=== PATIENT | female | born 2000 | race Caucasian/White ===

== ENCOUNTER 2019-12-24 13:05 | Outpatient (CLI) | payer OTHER, SELFPAY ==
[2019-12-24 13:27] LABS: Basophils Percent Auto 0.4 % (0.2-1.2); Eosinophils Absolute Auto 0.1 K/mm3 (0-0.3); Eosinophils Percent Auto 0.7 % (0-4.4); Hematocrit 47.6 % (37.0-47.0); Hemoglobin 15.7 g/dL (12.0-15.0); Immature Granulocyte Absolute 0.01 K/mm3 (0.00-0.031); Immature Granulocyte Percent A 0.1 % (0-0.5); Lymphocytes Absolute Auto 3.09 K/mm3 (0.9-3.2); Mean Corpuscular Hemoglobin 30.1 pg (26-34); Mean Corpuscular Volume 91.2 fl (80-100); Mean Platelet Volume 12.7 fl (7.4-10.4); Monocytes Absolute Auto 0.7 K/mm3 (0.1-0.6); Monocytes Percent Auto 8.6 % (2.6-8.5); Neutrophils Absolute Auto 4.5 K/mm3 (1.3-6.7); Neutrophils Percent Auto 53.2 % (45.5-73.1); Platelet Count Result 121 k/mm3 (150-375); Red Blood Count 5.22 M/mm3 (4.2-5.4); White Blood Count 8.4 K/mm3 (4.5-10.0)
[2019-12-24 16:49] LABS: Iron 120 ug/dL (37-170)
[2019-12-24 16:57] LABS: Alanine Aminotransferase 53 U/L (4-35); Albumin Level 4.7 g/dL (3.5-5.1); Alkaline Phosphatase 103 U/L (38-126); Aspartate Amino Transferase 36 U/L (14-36); Bilirubin,Total 0.6 mg/dL (0.2-1.3); Blood Urea Nitrogen 12 mg/dL (7-17); Calcium 9.4 mg/dL (8.4-10.2); Carbon Dioxide 22 mmol/L (22-30); Chloride 100 mmol/L (98-107); Estimated Glomerular Filt Rate > 60; Glucose 73 mg/dL (65-105); Lactate Dehydrogenase 442 U/L (313-618); Potassium 3.8 mmol/L (3.4-5.0); Sodium 138 mmol/L (137-145)
[2019-12-24 17:01] LABS: Percent Iron Saturation 41 % (20-50)
[2019-12-27 23:54] LABS: Platelet Antibody, Direct IgG NEGATIVE (NEGATIVE)
== END 2019-12-24 13:06 | disposition home or self-care (01) ==
LOC: ANHLAB 13:08
PROVIDERS: PCP Pediatrics; Visit Provider Internal Medicine Hematology & Oncology
DX: D69.59 Other secondary thrombocytopenia (principal)
CPT/HCPCS: 36415; 80053; 82607; 82728; 82746; 83540; 83550; 83615; 85025; 86023; 86038

== ENCOUNTER 2019-12-26 07:43 | Outpatient (CLI) | payer OTHER, SELFPAY ==
--- NOTE | ~2019-12-26 | US_ITS ---
US abdomen complete EXAMINATION: US Abdomen Complete INDICATION: PROCEDURE: Realtime High Resolution abdomen ultrasound. COMPARISON: No prior studies for comparison FINDINGS: Gallbladder within normal limits. No gallstones, pericholecystic fluid, gallbladder wall t hickening or biliary dilatation. Common bile duct measures 4 mm. Liver echotexture within normal limits without focal mass. Pancreas within normal limits. Pancreati c tail is obscured by bowel gas. Spleen is unremarkeable. Renal echotexture is within normal limits bilaterally without hydronephrosis, contour deforming mass or renal stone. Right kidney measures 11.3 cm. Left kidney measures 11.8 cm. Visualized aspects of the aorta and IVC are within normal limits. Portal vein is patent. No sonograph ic Krishnan's sign indicated by the technologist. IMPRESSION: 1: Normal abdominal ultrasound. Reviewed, dictated and finalized at location B. TIC COORDINATOR
== END 2019-12-26 07:44 | disposition home or self-care (01) ==
PROVIDERS: PCP Pediatrics; Visit Provider Internal Medicine Hematology & Oncology
DX: D69.59 Other secondary thrombocytopenia (principal)
CPT/HCPCS: 76700

== ENCOUNTER 2021-04-02 14:37 | Emergency (ER) | payer OTHER, SELFPAY ==
[2021-04-02 14:50] VITALS: BP 133/87; PULSE 96; RESP 16; TEMP 36.6; O2SAT 99
--- NOTE | 2021-04-02 14:55 | ED.URI ---
HPI - URI/Sore Throat General Chief Complaint: Upper Respiratory Infection Stated Complaint: cough/congestion Time Seen by Provider: 04/02/21 14:55 Source: patient Mode of arrival: ambulatory Limitations: no limitations History of Present Illness HPI Narrative: Thalia Clifford is a 20 yo female with no PMH other than tonsillar stones [facility] complaints of chronic cough that always gags her especially in the morning and feeling like she cannot breathe fully. She states that she had Covid in September and since she recovered from Covid without many symptoms has been having this problem with a cough and breathing since then. Related Data Allergies Allergy/AdvReac Type Severity Reaction Status Date / Time No Known Allergies Allergy Verified 04/02/21 15:07 Review of Systems Review of Systems: Narrative: CONSTITUTIONAL: Denies fever, chills, sweats. EYES: Denies visual changes, redness, discharge. ENT: Denies rhinorrhea, has congestion, has sore throat, otalgia. CARDIOVASCULAR: Denies chest pain, palpitations, edema. RESPIRATORY: Denies dyspnea, wheezing, chronic dry cough GASTROINTESTINAL: Denies abdominal pain, nausea, vomiting, diarrhea. GENITOURINARY: Denies dysuria, hematuria, abnormal discharge SKIN: Denies rash or itching. NEUROLOGIC: Denies numbness, or focal weakness. PSYCHIATRIC: Denies anxiety or depression. PMFSH Past Medical History Medical History Tonsillar calculus Family History Family History Other Hypertension Social History Social History (Updated 04/02/21 @ 15:14 by Jesi Weller CNP) Smoking status: Never smoker Alcohol intake: current Gender identity (if verbalized by the patient): Female Comments At time of signature, I agree with nursing past medical, surgical, social and family history. There is no relevant family history pertinent to the presenting complaint. Exam Narrative: Exam Narrative: GENERAL: This is a well-nourished, well-developed patient, in mild distress. HEAD: normocephalic, atraumatic. EYES: PERRL. Sclera clear/white. Vision is grossly intact. EARS: External ears normal, auditory canals clear and without drainage, TMs normal without perforation. Hearing grossly intact. NOSE: External nose normal without nasal discharge, nares without redness, no rhinorrhea. THROAT: Mucous membranes moist, posterior pharynx erythema, remove stones periodically NECK: Neck supple, non-tender CARDIOVASCULAR: Regular rate and rhythm without murmurs, gallops, or rubs. RESPIRATORY: Clear to auscultation. Breath sounds equal bilaterally. No wheezes, rales, or rhonchi. GASTROINTESTINAL: Abdomen soft, non-tender, SKIN: warm, intact with no suspicious lesions or rash, good texture and turgor. NEURO: awake, alert, and oriented to person, place and time. There were no obvious focal neurologic abnormalities. Steady gait EXTREMITIES: Normal range of motion. BACK: Nontender without deformity Course Course Emergency Course: Patient has chronic cough and since Covid in September, erratic tonsillar stones, and feel like she cannot breathe Strep test negative Added Zyrtec to the Angy patient already takes, started on rescue inhaler to try it , add Flonase, started on Pepcid 10 mg twice daily. Suspect that her cough is actually because from GERD particularly since is worse in the morning on awakening, and because her sinuses and her ears look clear on exam Recommend follow-up with ENT regarding tonsillar stones Vital Signs Vital signs: Vital Signs Temperature 97.9 F 04/02/21 14:50 Pulse Rate 96 04/02/21 14:50 Respiratory Rate 16 04/02/21 14:50 Blood Pressure 133/87 04/02/21 14:50 Pulse Oximetry 99 04/02/21 14:50 Temperature 97.9 F 04/02/21 14:50 Pulse Rate 96 04/02/21 14:50 Respiratory Rate 16 04/02/21 14:50 Blood Pressure 133/
== END 2021-04-02 15:30 | disposition home or self-care (01) ==
PROVIDERS: Emergency Provider Nurse Practitioner
DX: R05 Cough (principal); F41.9 Anxiety disorder, unspecified; J35.8 Other chronic diseases of tonsils and adenoids; K21.9 Gastro-esophageal reflux disease without esophagitis; Z86.16 Personal history of COVID-19
CPT/HCPCS: 87081; 87880; 99213; G0463

== ENCOUNTER 2024-12-27 06:02 | Inpatient (IN) | payer OTHER, SELFPAY ==
[2024-12-27] VITALS (38 sets, daily range): BP systolic 70–186; BP diastolic 45–150; PULSE 78–124; RESP 20; TEMP 36.3–37.5; O2SAT 96; BMI 40.1
--- NOTE | 2024-12-27 06:02 | LDADM ---
This patient, Thalia Clifford, was admitted to Labor/Delivery/Recovery [facility] on 12/27/24 at 06:02. Plans for labor, pain management and were discussed with patient. Patient/family oriented to hospital policies and general routines including ID bracelet, bed and alarms, visiting hours, pain management, procedures, bathroom and other care routines, personal items, smoking policy, room service/diet and guest tray routines, infant security routines, and visiting hours. Patient/Family are encouraged to report perceived risks to care and to ask questions if they do not understand what they are told or what they should do. See OBIX for further documentation.
--- OUTSIDE RECORDS SUMMARY | 2024-12-27 06:08 | XMS_ITS | Clinical Summary ---
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 Family History Relation Name Status Comments Brother 1 Alive Brother 2 Alive Father Alive Mother Alive Social History Tobacco Use Types Packs/Day Years Used Date Smoking Tobacco: Never Smokeless Tobacco: Never Alcohol Use Standard Drinks/Week Comments Yes 0 (1 standard drink = 0.6 oz pur e alcohol) Comments No Sex and Gender Information Value Date Recorded Sex Assigned at Not on file Legal Sex Female 12:14 PM UNDERGRADUATE ADVISOR Gender Identity Not on file Sexual Orientation Not on file Last Filed Vital Signs Vital Sign Reading Time Taken Comments Blood Pressure 116/76 12/17/2019 1:42 PM UNDERGRADUATE ADVISOR Pulse 89 12/17/2019 1:42 PM UNDERGRADUATE ADVISOR Temperature 37.1 C (98.7 F) 12/17/2019 1:42 PM UNDERGRADUATE ADVISOR Respiratory Rate - - Oxygen Saturation 97% 12/17/2019 1:42 PM UNDERGRADUATE ADVISOR Inhaled Oxygen Concentration - - Weight 88.3 kg (194 lb 9.6 oz) 12/17/2019 1:42 P M UNDERGRADUATE ADVISOR Height 167.6 cm (5' 6 ) 12/17/2019 1:42 PM UNDERGRADUATE ADVISOR Body Mass Index 31.41 12/17/2019 1:42 PM UNDERGRADUATE ADVISOR Plan of Treatment Health Maintenance Due Date Last Done Comments HPV VACCINES (1 - 3-dose series) 2014 DTAP/TDAP/TD VACCINES (1 - Tdap) 2018 HEPATITIS B VACCINES (1 of 3 - 19+ 3-dose series) 2018 CERVICAL CANCER SCREENING 2020 INFLUENZA VACCINE (#1) 2024 PNEUMOCOCCAL VACCINE 0-49 YEARS Aged Out No longer eligible based on patient's age to complete this topic Care Teams Vein Access Technician Relationship Specialty Start Date End Date Edel Alva NP [address] [place] [id number] PCP - General NURSE PRACTITIONER 09/03/19
--- OUTSIDE RECORDS SUMMARY | 2024-12-27 06:08 | XMS_ITS | Continuity of Care Document ---
Author Organization [facility] Address [address] [place] [address] Phone Care Team Providers Care Wood Buffer Name Role Phone Shai Arias MD Unavailable Unavailable Allergies, Adverse Reactions, Alerts Substance Reaction Status Criticality No Known Allergies Active No Inform ation Medications Medication Instructions Dosage Effective Dates (start - stop) Status Comments cetirizine 10 mg tablet take 1 tablet by oral route every evening 10 MG - Active fexofenadine 180 mg tablet take 1 tablet by oral route every morning 180 MG - Active diphenhydramine 25 mg tablet take 1 - 2 Tablet by oral route every 4 - 6 hours as needed 25 MG - Active Advance Directives Directive Yes / No Effective Date File Name No Information Encounters Encounter Description Practice Location Reason(s) For Visit Diagnoses Date Provider Providers Copied on Encounter [facility], [address], [place], [place], [id number], [place] tel:[phone] [facility] No Information Hugo Gibbons. [address], [id number], . tel:[phone] [facility], [address], [place], [place], [id number], tel:[phone] [facility] Other urticariaScab iesNon-allerg ic rhinitis Hugo Gibbons. [address], [id number], . tel:[phone] Referring Provider: Shai Arias, [address], [address] . tel:[phone] Family History Family Member Type Diagnosis Age At Onset Paternal grandmother Problem (finding) Allergies Father Problem (finding) Allergies Payers Payer name Insurance type Covered green party ID Authordc sheth(s) ATTILAStanley [facility] [id number] Social History Type Description Quantity Date Captured Comments Alcohol Use Details Unknown Caffeine Use Details Unknown Tobacco Use Status No Information Smoking Status No Information Sex Female Chief Complaint And Reason For Visit No Information Reason For Referral Reason For Referral No Information History Of Present Illness Encounter Date Complaint History Of Prese nt Illness No Information Functional Status Date Functional Assessmen t No Information Medications Administered Medication Instructions Dosage Effective Dates (start - stop) Status Comments No Drug Therapy Prescribed Instructions Date Instruction Additional Infor mation No Information Assessments Type Assessment Date No Information Patient Care Teams Name Effective Dates (start - stop) Status Members No Information
--- OUTSIDE RECORDS SUMMARY | 2024-12-27 06:08 | XMS_ITS | Clinical Summary ---
Author Organization [facility] Address [facility] [place] [address] Care Team Providers Care Leather Goods I Assembler Name Role Phone Edel Alva Primary Care Provider [phone] Allergies No known active allergies Medications medroxyPROGESTER one 150 MG/ML injection Inject 150 mg into the muscle every 3 (three) months. Active Active Problems Problem Noted Date Diagnosed Date Arthralgia of shoulder 04/25/2012 Family History Medical History Relation Comments Hypertension Paternal Grandmother Relation Status Comments Paternal Grandmother Social History Tobacco Use Types Packs/Day Years Used Date Smoking Tobacco: Never Smokeless Tobacco: Never Alcohol Use Standard Drinks/Week Comments Yes 2 (1 standard drink = 0.6 oz pur e alcohol) AUDIT-C Answer Date Recorded Frequency of Alcohol Consumption 2-4 times a tue07/30/2019 Average Number of Drinks Not on file 019 Frequency of Binge Drinking Not on file 04/2019 PHQ-2 Answer Date Recorded PHQ-2 Score 1 10/02/2019 Comments Unknown Sex and Gender Information Value Date Recorded Sex Assigned at Not on file Legal Sex Female 12:20 PM CDT Gender Identity Not on file Sexual Orientation Not on file Last Filed Vital Signs Vital Sign Reading Time Taken Comments Blood Pressure 109/73 07/30/2019 11:17 AM CDT Pulse 75 07/30/2019 11:17 AM CDT Temperature 37.3 C (99.2 F) 07/30/2019 11:17 AM CDT Respiratory Rate 16 07/30/2019 11:17 AM CDT Oxygen Saturation 99% 07/30/2019 11:17 AM CDT Inhaled Oxygen Concentration - - Weight 83.5 kg (184 lb) 07/30/2019 11:17 AM CDT Height 167.6 cm (5' 6 ) 07/30/2019 11:17 AM CDT Body Mass Index 29.7 07/30/2019 11:17 AM CDT Plan of Treatment Health Maintenance Due Date Last Done Comments Cervical Cancer Screening Pa p Smear (Age 21 to 29) Every 3 Years 1999 Cervical Cancer Screening 1999 Annual Physical 2002 HPV Vaccines (1 - 3-dose series) 2014 Hepatitis C 2017 DTaP, Tdap and Td Vaccines ( 1 - Tdap) 2018 Hepatitis B Vaccines (1 of 3 - 19+ 3-dose series) 2018 COVID-19 Vaccine (2023-2 5 season) 2024 Influenza Adult (#1) 2024 Meningococcal B Vaccine Aged Out No l onger eligible based on patient's age to complete this topic Meningococcal Vaccine Aged Out No katy sanjuanita eligible based on patient's age to complete this topic Pneumococcal Vaccine: Pediat rics (0 to 5 Years) and At-Risk Patients (6 to 64 Years) Aged Out No longer eligible b ased on patient's age to complete this topic RSV Immunizations Under 20 Months Aged Out No longer eligible based on patient's age to complete this topic Insurance [employer] Care Teams Leather Goods I Assembler Relationship Specialty Start Date End Date Edel Alva APNP [address] [place] [id number] PCP - General NURSE PRACTITIONER 07/30/19
--- OUTSIDE RECORDS SUMMARY | 2024-12-27 06:08 | XMS_ITS | Data Portability ---
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 She states cortisone has worked well for her previously. Today discussed treatment options in detail today with Dr. Hernandez over the phone and then with the patient. He has recommended cortisone injections both knees oral anti-inflammatori es and a course of physical therapy. The patient states she would like to do it on her own at home she was given home exercise sheets for anterior knee pain we talked about patellar guide braces and doing VMO quad strengthening. Things may change once she is but this may take some time to get back down to her regular weight. The patient wanted to proceed therefore under sterile conditions I injected the patient's bilateral knee joints in the office today with 4 cc 0.5% bupivacaine and 20 mg of Kenalog each. The patient tolerated the procedures well. She is going to check with her welder fitter to see if it is okay to take Celebrex 200 mg daily she will not fiber picker the medication unless she has clearance to do this from her OB doctor. Normally we would see her back at about 6-8 weeks this will be very close to her delivery date so she has agreed to come back as needed after she has the baby. We will see how she does with time I stressed the importance of the home exercise program she is going to try to keep up with this. She voiced understanding and agreed with the above plan she will call for any further problems difficulties or questions. [email or web address] Not available 11/08/2024 10:51:48 Plan of Treatment Reminders Order Date Submit Date Provider Last Modified By Organization Details Last Modified Time Details Appointments None recorded. Lab None recorded. Referral None recorded. Procedures injection/a spiration joint/bursa (PROC) 2024 025 [email or web address] In-Office Order, Internal Use Only DO Not Attach Compendium DO Not Attach Compendium, Do Not Delete/merge, [id number] 10:20:13 Surgeries None recorded. Imaging XR, knee 2024 025 [email or web address] [facility], [address], [place], [address], 12:09:49 Medication Orders celecoxib 200 mg capsule 2024 025 [employer] #[id number], [address], [id number], 12:09:49 bupivacaine HCl 0.5 % (5 mg/mL) injection solution [address] [facility] #[id number], [address] [facility] [address] [place] [address], [id number], 12:09:49 Kenalog 10 mg/mL suspension for injection [address] [facility] #[id number], [address], [phone], 12:09:49 Patient TargetsNo targets recorded. Patient InstructionsNo instructions recorded. Reason for Referral None Reported. Results Created Date Observation Date Name Description Value Unit Range Abnormal Flag Note LastModifiedBy Organization Detail LastModifiedTime 11/08/19 25 XR, knee No observ ation record ed. [email or web address] [facility] [address], [place], [address], 11/08/2024 10:53:40 Result Notes None recorded. Problems Name Problem SNOMED Code Status Onset Date Resolution Date Notes Provider Name and Address Organization Details Recorded Time Pain of bilateral knee joints 4152100765291 04 Active 2024 Reema Quintana CNA null, [facility] [employer] [facility] 09:53:50 Patellar maltracking 426397010 Active 2024 GUZMAN Hidalgo [address], [place], [address], [facility] [employer] [facility] 10:53:56 Chondromala snehal of bilateral patellas 1471182842633 9100 Active 2024 GUZMAN Hidalgo [address], [place], [address], [facility] [employer] [facility] 10:54:27 Problem Notes None recorded. Procedures Surgical History None recorded. Imaging Results Imaging Date Name Status LastModified by Organiz ation Details LastModified Time 11/08/2024 XR, knee completed [email or web address] [facility] [address], [place], [address], 11/08/2024 10:53:40 Procedure Notes None recorded. Medical Equipment None Reported. Allergies No known drug allergies Medications Name Sig Start Date Stop Date Status Note LastModified by Organization Details LastModified Time celecoxib 200 mg capsule Take 1 capsule every day by oral route. active Not Available Not Available No t Available azithromyci n 250 mg tablet 11/08 completed Not Available Not Available Not Available bupivacaine HCl 0.5 % (5 mg/mL) injection solution Take 40 mg by injection route. 2024 active Not Available Not Available Not Avai lable permethrin 5 % topical cream 11/08 completed Not Available Not Available Not Available clindamycin 1 %-benzoyl peroxide 5 % topical gel 11/08 completed Not Available Not Available Not Available hydrocortis one 2.5 % topical cream with perineal applicator APPLY TO THE AFFECTED AREA TWICE TO THREE TIMES DAILY active Not Available Not Available No t Available Kenalog 10 mg/mL suspension for injection Take 40 mg by injection route. 2024 active NDC: 0003- [phone]- 20 Not Available Not Available Not Available nitrofurant oin monohydrate /macrocryst als 100 mg capsule TK 1 C PO Q 12 H FOR 7 DAYS UTD 11/08 completed Not Available Not Available Not Available Vitals Date Recorded Body height Body mass index (BMI) Body weight Provider Name and Address Organization Details Last Updated DateTime 11/08/2024 167.64 cm 40.4 kg/m2 330836.09 g Reema GreenfieldSHANE gardinerA [employer] 11/08/2024 09:51:54 Social History Question Answer Notes LastModified by Organizat ion Details LastModified Time Tobacco Smoking Status Never Smoker Reema Quintana CNA null, [facility] [facility] [employer] 11/08/2024 09:53:13 What Is Your Level Of Alcohol Consumption? None [email or web address] Information not available 11/08/2024 Sex: Unknown Functional Status None recorded. Mental Status None recorded. Family History Nothing Reported Notes:CANCER-FATHER Medical History Condition Response ARTHRITIS Y Gynecological HistoryNo gynecological history recorded. Obstetrics History GPAL:G 0 P 0 0 0 0 Past Encounters Encounter ID Performer Location Encounter Start Date Encounter Closed Date Diagnosis/Indication Diagnosis SNOMED-CT Code Diagnosis ICD10 Code Diagnosis Note [id number] GUZMAN Hidalgo [facility] [address] [place] [address] 11/08/2024 09:38:05 11/08/2024 10:21:42 Pain of bilateral knee joints 3915571446 87893 M25.561 M25.562 Patellar maltracking 250 214986 M22.2X9 Chondromal acia of bilateral patellas [id number] 1257515 M22.41 M22.42 Health Concerns Section Related Observation LastModified by Organization Detai ls LastModified Time None Recorded Concern Status LastModified by Organization Details LastModified Time None Recorded Advance Directives Directive None Recorded Payers Encounter Date Sequence Insurance Name Policy Number Policy Brandt Covered Member ID Brandt Member ID Guarantor Name 11/08/2024 1 [employer] [id number] Víctor Clifford [id number] Thalia Clifford Notes Date Note Type Note Provider Name and Address Organization Details Recorded Time 11/08/2024 text/html The patient is a 23-year-old female who presents with a more than 1 year history of bilateral knee pain. She denies any specific trauma or injury to either knee. She saw Dr. Karlo turner at [facility] about a year ago she was told at that time she had some patellofemoral maltracking and chondromalacia patella bilateral knees. She was treated with a shot of cortisone which gave her very good relief. Recently her pain has started to flare up again. She states the left side was treated previously now the right is bothering her as well. She has no effusion or swelling no locking or catching no mechanical symptoms in either knee. Her main complaint is if she sits for too long of a time this aggravates her knees, if she squats or kneels down she has a hard time getting back up because of the anterior knee pain bilaterally. She states the pain is about a 7 on a scale of 1-10. She has tried Celebrex about a year ago but does not have any now she was also given some therapy exercises to do but admits she has not kept up with those and is not sure what she should be doing. She was told to strengthen her quad muscles. Recently she has had no treatment she has aching pain that is aggravating and limits what she can do at times. She denies any trauma to either knee as a child or in her high school years she does report that she has some hyperextension of both knees and it has been told she has some patellofemoral maltracking. She comes in today for initial evaluation and treatment here. The patient states she is 33 weeks and has noted that with the weight gain and other changes related to her knee pain has worsened a bit with time.A new past medical history sheet was reviewed and signed on the intake sheet of today's date drug allergies current medications family social history previous surgical history 10 point review of systems was reviewed and discussed in detail today with the patient. GUZMAN Hidalgo [address] [facility] [facility] [address], [place], [address], [facility] [employer] 11/08/2024 11:00:01 OBGyn Episode No OBEpisode recorded.
[2024-12-27 07:04] LABS: Basophils Percent Auto 0.1 % (0.2-1.2); Eosinophils Percent Auto 0.3 % (0-4.4); Hematocrit 44.8 % (37.0-47.0); Hemoglobin 15.3 g/dL (12.0-15.0); Immature Granulocyte Absolute 0.04 K/mm3 (0.00-0.031); Immature Granulocyte Percent A 0.4 % (0-0.5); Immature Platelet Fraction Pct 26.1 % (0.9-11.2); Lymphocytes Absolute Auto 2.13 K/mm3 (0.9-3.2); Lymphocytes Percent Auto 21.6 % (18.3-44.2); Mean Corpuscular HGB Conc 34.2 g/dl (32-36); Mean Corpuscular Hemoglobin 30.6 pg (26-34); Mean Corpuscular Volume 89.6 fl (80-100); Mean Platelet Volume 13.8 fl (7.4-10.4); Monocytes Absolute Auto 0.6 K/mm3 (0.1-0.6); Neutrophils Absolute Auto 7.1 K/mm3 (1.3-6.7); Neutrophils Percent Auto 71.6 % (45.5-73.1); Platelet Count Result 71 k/mm3 (150-375); Red Cell Distribution Width 12.6 % (11.5-14.5); White Blood Count 9.9 K/mm3 (4.5-10.0)
[2024-12-27] MEDS: LACTATED RINGERS 1,000 ML 125 ML IV CONT ×2 (07:19→15:12)
[2024-12-27] MEDS: AMPICILLIN 2 GM/NS 100 ML 2 GM/100 ML BAG IVPB (07:19)
[2024-12-27] MEDS: OXYTOCIN 30 UNITS/NS 500 ML 30 UNITS/500 ML BAG 6 UNITS IV CONT (07:20)
--- NOTE | 2024-12-27 07:27 | PM.IMHP ---
H&P: HPI History of Present Illness Date/Time: 12/27/24 07:27 Chief Complaint: Induction of labor at term Narrative: 24-year-old 1 para 0 with last menstrual period beginning in March, of 12/29/2024, confirmed by 10 week ultrasound presents at 39 weeks gestation for induction of labor secondary to positive group B strep. She does have low platelets and they have been stable Review of Systems Review of Systems: CONSTITUTIONAL: Denies fever, chills, sweats. EYES: Denies visual changes, redness, discharge. ENT: Denies rhinorrhea, has congestion, has sore throat, otalgia. CARDIOVASCULAR: Denies chest pain, palpitations, edema. RESPIRATORY: Denies dyspnea, wheezing, chronic dry cough GASTROINTESTINAL: Denies abdominal pain, nausea, vomiting, diarrhea. GENITOURINARY: Denies dysuria, hematuria, abnormal discharge SKIN: Denies rash or itching. NEUROLOGIC: Denies numbness, or focal weakness. PSYCHIATRIC: Denies anxiety or depression. [facility] Past Medical History Medical History Tonsillar calculus Family History Family History Father Hypertension Lymphoma Social History Social History Smoking status: Never smoker Tobacco type: e-cigarettes/vaping Alcohol intake: current Substance use: never Substance use type: marijuana Do You Feel Safe in your Home?: Yes Lack of Transportation: No Lack of Food: Never True Current Housing: I Have Housing Concerned About Future Housing: No Difficulty Paying Gas/Electric Bills: No Difficulty Paying for Meds: No Currently Unemployed: No Education: Trade/Vocational Certificate Difficulty w/ Childcare or Family Care: No Living arrangements: with friend(s) Additional living arrangements comments: lives with boyfriend Occupation/Education: occupation 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 Gender identity (if verbalized by the patient): Female Spiritual care concerns: No Meds Home Medications and Allergies Home Medications ?Medication ?Instructions ?Recorded ?Confirmed ?Type vit no.37-iron fum 29 mg tablet PO 12/20/24 History iron-folic acid 1 mg chewable tablet (PreNata) Allergies Allergy/AdvReac Type Severity Reaction Status Date / Time No Known Allergies Allergy Verified 12/20/24 12:41 Vital Signs Vital Signs - 24 hr 12/27/24 06:55 12/27/24 07:16 Pulse Rate 100 93 Blood Pressure 137/89 127/69 Exam Const: General: cooperative, healthy appearing and comfortable Nutritional Appearance: average body habitus Orientation/consciousness: oriented to person, oriented to place and oriented to time Resp: Effort & Inspection: normal respiratory effort Cardio: Rate: regular rate Rhythm: regular rhythm Heart sounds: S1 normal heart sound present and S2 normal heart sound present GI: Inspection: normal to inspection (Gravid soft uterus) : External Female Exam: normal external appearance Speculum Exam - Vagina: normal appearance of the vagina Speculum Exam - Cervix: normal appearance of the cervix (Cervix 3/75/1. AROM clear. FHTs reassuring) Assessment and Plan Assessment and plan (1) Term : Code(s): Z34.90 - Encounter for supervision of normal , unspecified, unspecified trimester Status: Acute (2) Thrombocytopenia: Code(s): D69.6 - Thrombocytopenia, unspecified Status: Acute (3) Positive testing for group B Streptococcus: Code(s): B95.1 - Streptococcus, group B, as the cause of diseases classified elsewhere Status: Acute Plan Medical induction of labor. Group B strep prophylaxis. Spontaneous vaginal delivery expected. She has the epidural candidate
[2024-12-27 07:51] LABS: HIV 1/2 Ab P24 Ag Result Negative (Negative)
[2024-12-27 09:45] LABS: Syphilis IgG/IgM Antibody Negative (Negative)
[2024-12-27] MEDS: AMPICILLIN 1 GM/NS 50 ML 1 GM/50 ML BAG IVPB ×2 (11:29→15:12)
--- NOTE | 2024-12-27 12:19 | PM.OBPNLAB ---
Pain Control Date/time seen: 12/27/24 12:19 Pain control: tolerating well Pelvic Exam Dilation (cm): 4 Effacement (%): 80 station: -1 Amniotic membrane status: Leaking Contractions Monitor mode: External Contraction frequency: 3
[2024-12-27] MEDS: fentaNYL CITRATE INJ (*CRX) 100 MCG/2 ML VIAL 50 MCG IV PUSH (12:25)
[2024-12-27] MEDS: fentaNYL CITRATE INJ (*CRX) 100 MCG/2 ML VIAL IV PUSH ×3 (13:32→16:09)
[2024-12-27] MEDS: ONDANSETRON INJ 4 MG/2 ML VIAL IV PUSH (15:47)
--- NOTE | 2024-12-27 16:35 | PM.OBPNLAB ---
Pain Control Date/time seen: 12/27/24 16:35 Pain control: tolerating well Pelvic Exam Dilation (cm): 7 Effacement (%): 100 station: -1 Amniotic membrane status: Leaking Contractions Monitor mode: External Contraction frequency: 3
[2024-12-27] MEDS: SODIUM CHLORIDE 0.9% IV 300 ML 600 ML I-UTERINE (16:41)
--- NOTE | 2024-12-27 17:39 | PM.OBPRVD ---
OB - Vaginal Delivery Note Procedure Delivery date: 12/27/24 Events: Elective Induction of Labor and Positive Group B Strep (GBS) Induction method: AROM Delivery augmentation: Pitocin Delivery monitor: External FHT, External Uterine and Internal Uterine Route of delivery: Episiotomy description: None Laceration Description: Perineal - 1st Degree Delivery repair: vicryl Specimen: No Quantitative Blood Loss (ml): 62 Anesthesia type: Local Disposition: Floor Complications: No immediate complications Narrative: Patient was admitted for induction of labor she had low platelets and and was unable to have epidural anesthesia artificial rupture membranes performed in the morning she progressed unremarkable 1st stage of labor had an IUPC placed when she was complete she pushed delivered head spontaneously in the MERLYN position. Anterior posterior shoulder delivered spontaneously. Cord clamped x2 and cut infant placed in warmer given Apgars of 8 [id number] 9 [id number]. Cord blood was drawn. Placenta delivered intact spontaneously. Twenty of Pitocin placed IV to help firm the uterus. A small 1st degree laceration was seen in the perineum was instilled with 2cc 1% xylocaine anesthesia. A [id number] suture with the 0 Vicryl was placed with excellent placement blood loss was estimated at62cc. All sponge, needle, instrument counts were correct. There were no immediate complications. She did received 4 doses of ampicillin prophylactically Baby Date of : 12/27/24 Time of : 17:25 Gestational Age by Date: 39 gender: Female presentation: vertex position: Left Occiput Anterior Placenta delivery description: Spontaneous Cord Vessel Description: 3 Vessels score one minute: 8 score five minutes: 9 Narrative: Ampicillin times 4
--- NOTE | 2024-12-27 17:42 | PM.DS ---
DS: Admitting Diagnosis Discharge Date 12/29/2024 Admitting Diagnosis Term /positive group B strep/thrombocytopenia DS: Discharge Diagnosis Discharge Diagnosis (1) Positive testing for group B Streptococcus: Code(s): B95.1 - Streptococcus, group B, as the cause of diseases classified elsewhere Status: Acute (2) Thrombocytopenia: Code(s): D69.6 - Thrombocytopenia, unspecified Status: Acute (3) Term : Code(s): Z34.90 - Encounter for supervision of normal , unspecified, unspecified trimester Status: Acute DS: Summary Hospital Course Reason for hospitalization: Patient was admitted for induction of labor term and underwent spontaneous vaginal delivery Hospital Course: Patient's hospital course unremarkable. She remained afebrile. She was up, voiding without difficulty, eating regular diet, ambulating, and generally without complaints. Time Spent with Patient Time attestation: Total time spent providing and/or coordinating discharge services: Exam Const: General: cooperative, healthy appearing and comfortable Nutritional Appearance: average body habitus Orientation/consciousness: oriented to person, oriented to place and oriented to time HENMT: Head: normal to inspection Resp: Effort & Inspection: normal respiratory effort Cardio: Rate: regular rate Rhythm: regular rhythm Heart sounds: S1 normal heart sound present and S2 normal heart sound present GI: Inspection: normal to inspection (Fundus firm below umbilicus) DS: Data Data Completed and Pending Labs on day of discharge: Labs from last 24 hours 12/27/24 06:26 WBC 9.9 RBC 5.00 Hgb 15.3 H Hct 44.8 MCV 89.6 MCH 30.6 MCHC 34.2 RDW 12.6 Plt Count 71 L MPV 13.8 H Immature Gran % (Auto) 0.4 Neut % (Auto) 71.6 Lymph % (Auto) 21.6 [place] % (Auto) 6.0 Eos % (Auto) 0.3 Baso % (Auto) 0.1 L Lymph # (Auto) 2.13 [place] # (Auto) 0.6 Eos # (Auto) 0.0 Baso # (Auto) 0.0 Abs Immat Gran (auto) 0.04 H Absolute Neuts (auto) 7.1 H Absolute Nucleated RBC 0.000 Nucleated RBC % 0.0 % Immature Plt Fraction 26.1 H Syphilis IgG/IgM Ab Negative HIV 1&2 Ab/P24 Ag 4thGn Negative Blood Type O Positive Antibody Screen Negative Discharge Plan Discharge Attending physician on discharge: Porfirio Best Discharging Clinician: Porfirio Best Patient Disposition: Home, Self-Care Activity: may shower, no straining and pelvic rest Diet: heart healthy Wound Care Instructions: follow printed instructions Patient Instructions: Antibiotic Form Patient Language: Setswana Stand Alone Forms: General Discharge Information Follow-up/Referrals: Porfirio Best MD [Physician] - Discharge Medications: Continued PreNata 29 mg iron- 1 mg tablet,chewable 1 tablet PO DAILY Date of admission: 12/27/24 06:02 Primary Care Provider: Juan DiegoWilfrid Admitting Provider: Porfirio Best Attending physician on admission: Porfirio Best Condition: Stable
[2024-12-27] MEDS: OXYTOCIN 30 UNITS/NS 500 ML 30 UNITS/500 ML BAG 125 UNITS IV CONT (17:55)
[2024-12-27] MEDS: ACETAMINOPHEN 325 MG TABLET 650 MG PO (18:19)
--- NOTE | 2024-12-27 20:52 | OBPPTRN ---
Patient transferred to post room #285 via (wheelchair ). Support person present. Oriented to unit, room, information board, rooming in, admission packet and security measures. Patient verbalizes understanding.
[2024-12-28] VITALS (7 sets, daily range): BP systolic 105–127; BP diastolic 65–79; PULSE 82–112; RESP 16; TEMP 36–36.7; O2SAT 96–99
[2024-12-28 05:20] LABS: Hematocrit 43.3 % (37.0-47.0); Hemoglobin 14.6 g/dL (12.0-15.0)
[2024-12-28] MEDS: IBUPROFEN 600 MG TABLET PO ×2 (07:17→17:14)
[2024-12-28] MEDS: DOCUSATE SODIUM 100 MG CAPSULE PO ×2 (07:18→17:14)
[2024-12-28] MEDS: MULTIVIT/MIN/PREN/FOL AC/IRON TABLET 1 TAB PO (07:18)
--- NOTE | 2024-12-28 07:58 | P.PNOB_ITS ---
OB - PN: Subj Subjective Date/time seen: 12/28/24 07:58 Patient comments: no complaints and pain well controlled baby status: doing well and nursing well OB - PN: Obj Data Labs 12/28/24 05:12 Labs: Laboratory Results - last 24 hr 12/27/24 12/28/24 06:26 05:12 Hgb 14.6 Hct 43.3 Syphilis IgG/IgM Ab Negative OB - PN A/P Assessment and Plan (1) Positive testing for group B Streptococcus: Code(s): B95.1 - Streptococcus, group B, as the cause of diseases classified elsewhere Status: Acute (2) Thrombocytopenia: Code(s): D69.6 - Thrombocytopenia, unspecified Status: Acute (3) Term : Code(s): Z34.90 - Encounter for supervision of normal , unspecified, unspecified trimester Status: Acute Plan Routine care Time Spent With Patient Time: Total time spent is greater than 50% in coordination of care (as documented) at patient's floor/unit and/or counseling patient: Review of Systems 2 Review of Systems: CONSTITUTIONAL: Denies fever, chills, sweats. EYES: Denies visual changes, redness, discharge. ENT: Denies rhinorrhea, has congestion, has sore throat, otalgia. CARDIOVASCULAR: Denies chest pain, palpitations, edema. RESPIRATORY: Denies dyspnea, wheezing, chronic dry cough GASTROINTESTINAL: Denies abdominal pain, nausea, vomiting, diarrhea. GENITOURINARY: Denies dysuria, hematuria, abnormal discharge SKIN: Denies rash or itching. NEUROLOGIC: Denies numbness, or focal weakness. PSYCHIATRIC: Denies anxiety or depression. Exam 2 Const: General: cooperative, healthy appearing and comfortable Nutritional Appearance: average body habitus Orientation/consciousness: oriented to person, oriented to place and oriented to time HENMT: Head: normal to inspection Resp: Effort & Inspection: normal respiratory effort Cardio: Rate: regular rate Rhythm: regular rhythm Heart sounds: S1 normal heart sound present and S2 normal heart sound present GI: Inspection: normal to inspection (Fundus firm below the umbilicus)
[2024-12-28] MEDS: ACETAMINOPHEN 325 MG TABLET 650 MG PO (12:05)
--- NOTE | 2024-12-28 13:10 | PC.NURSE ---
Introductions were made, then consulted with patient to assess needs related to . Mother led the conversation with her?plans to feed?her and the?experience so far. Per mother is going well, this RN did assess a latch this morning at 0610 and baby was latched optimally to the right breast in cross cradle. Encouraged understanding of the benefits of skin to skin (demonstrating unwrapping infant and placing upright on her chest), stimulating with massage touch, changing positions to encourage wakefulness, how to watch for early feeding cues, responsive feeding, feeding on demand (aiming for 8-12 times in 24 hours, about every 2-3 hours), milk production, building/maintaining a milk supply, duration of feeding, signs of adequate intake/output and how to record on the feeding sheet. Mother works well with her infant with encouragement and education. Reviewed positioning and ear, shoulder, hip alignment, supporting the breast to facilitate a deep latch, asymmetrical latch (off-center), leading with the chin with a big, open, wide gape and body close to mother. latched optimally to the [right] breast in [cross cradle] position. Education given to the mother of how to visualize the suckling (with good rocking jaw motion), swallows (dropping of the lower jaw) and how to listen for drinking at the breast (the ka sound). Infant was [able] to maintain latch without pain to mother protecting the nipple with optimal positioning and latching. Reviewed comfort measures of healing with a warm, wet washcloth to rinse breast, then leave open to air-dry, good handwashing when or touching the breast/nipples to prevent infection. Mother voiced understanding of skin to skin, stimulating with massage touch, responsive feedings, hand expressed colostrum, talking to infant to encourage if it has been 2 -2.5 hours since the start of the last , to call if does not latch, or if there is discomfort with . Resources used for education were facilitated with the [visual educational handouts/ tool/mom and baby guide], Inpatient/outpatient resources provided with business card, feeding sheet, name written on the communication board, and the mom/baby guide. Parents voiced understanding of information, demonstrated learning and will call if there is a request for assistance. Mother has also brought her own frozen pumped colostrum, labeled and placed in our breast milk freezer per Primary RN. Reported to the Primary RN.
[2024-12-29] MEDS: IBUPROFEN 600 MG TABLET PO (05:39)
--- NOTE | 2024-12-29 07:03 | P.PNOB_ITS ---
OB - PN: Subj Subjective Date/time seen: 12/29/24 07:03 Patient comments: no complaints, pain well controlled and tolerating diet [place] baby status: doing well OB - PN: Obj Data Labs 12/28/24 05:12 OB - PN A/P Assessment and Plan (1) Positive testing for group B Streptococcus: Code(s): B95.1 - Streptococcus, group B, as the cause of diseases classified elsewhere Status: Acute (2) Thrombocytopenia: Code(s): D69.6 - Thrombocytopenia, unspecified Status: Acute (3) Term : Code(s): Z34.90 - Encounter for supervision of normal , unspecified, unspecified trimester Status: Acute Plan Comments: home Time Spent With Patient Time: Total time spent is greater than 50% in coordination of care (as documented) at patient's floor/unit and/or counseling patient: Review of Systems 2 Review of Systems: CONSTITUTIONAL: Denies fever, chills, sweats. EYES: Denies visual changes, redness, discharge. ENT: Denies rhinorrhea, has congestion, has sore throat, otalgia. CARDIOVASCULAR: Denies chest pain, palpitations, edema. RESPIRATORY: Denies dyspnea, wheezing, chronic dry cough GASTROINTESTINAL: Denies abdominal pain, nausea, vomiting, diarrhea. GENITOURINARY: Denies dysuria, hematuria, abnormal discharge SKIN: Denies rash or itching. NEUROLOGIC: Denies numbness, or focal weakness. PSYCHIATRIC: Denies anxiety or depression. Exam 2 Const: General: cooperative, healthy appearing and comfortable Nutritional Appearance: average body habitus Orientation/consciousness: oriented to person, oriented to place and oriented to time Resp: Effort & Inspection: normal respiratory effort Cardio: Rate: regular rate Rhythm: regular rhythm Heart sounds: S1 normal heart sound present and S2 normal heart sound present GI: Inspection: normal to inspection
[2024-12-29 07:30] VITALS: BP 126/79; PULSE 85; RESP 18; TEMP 36.8; O2SAT 99
[2024-12-29] MEDS: DOCUSATE SODIUM 100 MG CAPSULE PO (09:04)
[2024-12-29] MEDS: MULTIVIT/MIN/PREN/FOL AC/IRON TABLET 1 TAB PO (09:04)
--- NOTE | 2024-12-29 10:35 | PC.NURSE ---
1035: Consulted with mother concerning needs and she shared her ability to independently latch infant optimally without pain. Mother is feeding appropriately for growth of infant and understands stimulating infant to eat if needed. Infant has had appropriate feedings in the last 24 hours meets the outcomes for weight, output, blood sugar and jaundice at this time. Reinforced understanding of milk production, transition of milk, signs of adequate intake, transition of stool, prevention/relief of engorgement, plugged ducts, mastitis, responsive watching for feeding cues, the different methods of stimulating infant to breastfeed 1-3 hours after the start of the last feeding, community resources (patient has her own pump), and when to call a provider using the resource of the feeding sheet along with the mom and baby guide. Mother voiced understanding of the information shared, is confident to continue effectively her infant at home, when to call for assistance, denies any additional assistance or education at this time. Reported to the Primary RN. 1050: Patient called out for a latch check. Baby was in cross cradle hold on the right breast. Mom states she has some latch on pain that goes away quickly. We reviewed how to look at baby for chin on breast, wide mouth, and proper alignment. Mom has concerns about if baby is getting anything . Mom was taught to look and listen for swallows, with expectation that baby should move to a one suck to one swallow ratio as her milk supply increases. Mom was able to see swallowing. Reported to primary RN.
[2024-12-31 09:27] VITALS: BP 131/84; PULSE 93; RESP 20; TEMP 37.2; O2SAT 98
== END 2024-12-29 12:38 | disposition home or self-care (01) | DRG 807 ==
LOC: ANHLDR 17:45 → ANHOB2 20:49
PROVIDERS: Admitting Provider Obstetrics & Gynecology; PCP Family Medicine; Visit Provider Obstetrics & Gynecology
DX: O99.824 Streptococcus B carrier state complicating childbirth (principal); Z37.0 Single live birth; Z3A.39 39 weeks gestation of pregnancy; O70.0 First degree perineal laceration during delivery; O99.12 Other diseases of the blood and blood-forming organs and certain disorders involving the immune mechanism complicating childbirth; D69.6 Thrombocytopenia, unspecified
CPT/HCPCS: 36415; 85014; 85018; 85025; 85055; 86593; 86703; 86850; 86900; 86901; A9270; G0432; J0290; J2405; J2590; J3010; J7030; J7120